=== PATIENT | male | born 1965 | race African-American/Black ===

== ENCOUNTER 2017-08-19 17:58 | Emergency (ER) | payer OTHER ==
[~2017-08-19 17:58] MED LIST: DIAZ5 PO; IBUP-238 PO
[2017-08-19 18:02] VITALS: BP 174/86; PULSE 91; RESP 20; TEMP 98.3; O2SAT 93
[2017-08-19] MEDS ORDERED: LOSA50TA PO (18:16)
[2017-08-19 18:25] VITALS: BP 155/92; PULSE 82; RESP 18; O2SAT 99
--- NOTE | 2017-08-19 18:29 | PD ---
HPI Chief Complaint: Cardiac Complaint Time Seen by Provider: 18:16 Travel History International Travel<30 days: No Contact w/Intl Traveler<30days: No Traveled to known affect area: No History of Present Illness HPI 51-year-old male with history of hypertension here for evaluation of palpitations and muscle spasm in left chest. Symptoms have been intermittent for the last 2 days. No modifying factors. When symptoms occur they last for a few seconds. Last episode was about 30 minutes prior to arrival. Patient denies any history or family history of cardiac disease. No history of DVT or PE. No dyspnea. No paresthesias or motor deficits. No chest pain. He feels a sensation of muscle twitching in his left chest and feels this is heart is racing. He is wearing a fit bit, and notices that his heart rate remains in the 70s or 80s while these episodes occur. 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 PFSH Past Medical History Cancer: No Diabetes: No Diminished Hearing: No Hepatitis: No Hiatal Hernia: No Hypertension: Yes Inguinal Hernia: Yes Respiratory: Yes (SLEEP APNEA, CPAP USED) Thyroid Disease: No Influenza Vaccination: Yes ?: Not Past Surgical History Abdominal Surgery: Yes (2005 INGUINAL HERNIA LT) Oral Surgery: Yes (2002 CAUTERIZED FOR ULCERS) Pacemaker: No Other Surgery: Yes (HERNIA REPAIR) Social History Alcohol Use: Yes ([facility]) Tobacco Use: No Substance Use: No Allergies-Medications (Allergen,Severity, Reaction): Coded Allergies: No Known Allergies (Verified , 08/19/17) Reported Meds & Prescriptions Reported Meds & Active Scripts Active Reported Losartan (Losartan Potassium) 50 Mg Tab 50 Mg PO DAILY Review of Systems Except as stated in HPI: all other systems reviewed are Neg Physical Exam Narrative GENERAL: Well-developed, well-nourished, comfortable, no apparent distress. SKIN: Focused skin assessment warm/dry. HEAD: Atraumatic. Normocephalic. EYES: Pupils equal and round. No scleral icterus. No injection or drainage. ENT: Mucous membranes pink and moist. NECK: Trachea midline. No JVD. CARDIOVASCULAR: Regular rate and rhythm. Distal pulses brisk and equal bilaterally. RESPIRATORY: No accessory muscle use. Clear to auscultation. Breath sounds equal bilaterally. GASTROINTESTINAL: Abdomen soft, non-tender, nondistended. MUSCULOSKELETAL: No obvious deformities. No clubbing. No cyanosis. No edema. NEUROLOGICAL: Awake and alert. No obvious cranial nerve deficits. Motor grossly within normal limits. Normal speech. PSYCHIATRIC: Appropriate mood and affect; insight and judgment normal. Data Data Last Documented VS Vital Signs Date Time Temp Pulse Resp B/P (MAP) Pulse Ox O2 Delivery O2 Flow Rate FiO2 08/19/17 19:00 73 18 98 Room Air 08/19/17 19:00 149/91 (110) 08/19/17 18:02 98.3 Orders Orders Electrocardiogram (08/19/17 ) Basic Metabolic Panel (Bmp) (08/19/17 18:23) Ckmb (Isoenzyme) Profile (08/19/17) Complete Blood Count With Diff (08/19/17 18:) Magnesium (Mg) (08/19/17 18:23) Prothrombin Time / Inr (Pt) (08/19/17:) Act Partial Throm Time (Ptt) (08/19/17 18:23) Troponin I (08/19/17 18:23) Chest, Single Ap (08/19/17 18:23) Ecg Monitoring (08/19/17 18:23) Bilateral Bp Monitoring (08/19/17 18:23) Iv Access Insert/Monitor (08/19/17 18:23) Oximetry (08/19/17 18:23) Oxygen Administration (08/19/17 18:23) Sodium Chloride 0.9% Flush (Ns Flush) (08/19/17 18:30) CKMB (08/19/17 18:10) CKMB% (08/19/17 18:10) Troponin I (08/19/17 20:59) Electrocardiogram (08/19/17 21:10) Labs Laboratory Tests Test 08/19/17 18:10 08/19/17 21:25 White Blood Count 7.1 TH/MM3 Red Blood Count 5.31 MIL/MM3 Hemoglobin 15.5 GM/DL Hematocrit 46.3 % Mean Corpuscular Volume 87.1 FL Mean Corpuscular Hemoglobin 29.1 PG Mean Corpuscular Hemoglobin Concent 33.4 % Red Cell Distribution Width 12.2 % Platelet Count 268 TH/MM3 Mean Platelet Volume 7.3 FL Neutrophils (%) (Auto) 58.7 % Lymphocytes (%) (Auto) 31.3 % Monocytes (%) (Auto) 5.6 % Eosinophils (%) (Auto) 3.4 % Basophils (%) (Auto) 1.0 % Neutrophils # (Auto) 4.2 TH/MM3 Lymphocytes # (Auto) 2.2 TH/MM3 Monocytes # (Auto) 0.4 TH/MM3 Eosinophils # (Auto) 0.2 TH/MM3 Basophils # (Auto) 0.1 TH/MM3 CBC Comment DIFF FINAL Differential Comment Prothrombin Time 10.7 SEC Prothromb Time International Ratio 1.0 RATIO Activated Partial Thromboplast Time 33.8 SEC Blood Urea Nitrogen 24 MG/DL Creatinine 1.30 MG/DL Random Glucose 90 MG/DL Calcium Level 9.3 MG/DL Magnesium Level 2.0 MG/DL Sodium Level 136 MEQ/L Potassium Level 3.9 MEQ/L Chloride Level 102 MEQ/L Carbon Dioxide Level 25.8 MEQ/L Anion Gap 8 MEQ/L Estimat Glomerular Filtration Rate 71 ML/MIN Total Creatine Kinase 171 U/L Creatine Kinase MB 1.0 NG/ML Troponin I LESS THAN 0.02 NG/ML LESS THAN 0.02 NG/ML MDM Medical Decision Making Medical Screen Exam Complete: Yes Emergency Medical Condition: Yes Differential Diagnosis Palpitations, ACS, metabolic abnormality, anxiety Narrative Course Vital signs reviewed. CBC is unremarkable. BMP is unremarkable. Cardiac enzymes are negative. Chest x-ray: CONCLUSION: 1. Cardiomegaly. 2. Minimal central pulmonary vascular congestion. 3. No focal alveolar consolidation to suggest pneumonia. Case discussed with on-call security systems technician Dr. Salamanca. Patient prefers to be discharged home with outpatient follow-up if at all possible. He reviewed the patient's EKG, and the patient has similar ST elevations on EKG from 06/12/12 which are more than likely from early repolarization. Patient does not have any chest pain. Plan is to perform a delta troponin 3 hours after the first, and if negative, the patient will be discharged home with follow-up with Dr. Salamanca or a security systems technician of the patient's choice this week. Repeat EKG shows the same ST elevations with normally inflected T waves. This is early repolarization. Delta troponin 3 hours after the first is also negative. Patient was made aware of all findings and will be discharged home with outpatient follow-up. He is requesting something to help him sleep as he has had little sleep in the last 2 weeks. He reports that he was prescribed Valium and Ativan in the past. I will give him a short course of Ativan. He was informed on when to return to the emergency department. He verbalizes understanding and agreement with plan. Diagnosis Primary Impression: Palpitations Referrals: Olu Salamanca MD 3 days [facility] Primary Care Physician 3 days Additional Instructions: Follow-up with security systems technician Dr. Jadyn black security systems technician of your choice this week. Follow-up with your primary care physician this week. Return to the emergency department for worsening symptoms or any other concerns. Scripts Lorazepam (Ativan) 1 Mg Tab 1 MG PO HS Y for ANXIETY AND/OR AGITATION, #3 TAB 0 Refills Prov: Saul Lindsey MD 08/19/17 Disposition: 01 DISCHARGE HOME Condition: Stable Saul Lindsey MD Aug 19, 2017 18:29
[2017-08-19] MEDS ORDERED: SODIUM CHLORIDE 0.9% FLUSH 10 ML FLUSH IVF PRN (18:30)
[2017-08-19 18:36] LABS: AUTOMATED NEUTROPHIL # 4.2 TH/MM3 (1.8-7.7); BASOPHIL # 0.1 TH/MM3 (0-0.2); EOSINOPHIL # 0.2 TH/MM3 (0-0.4); EOSINOPHIL % 3.4 % (0.0-4.0); HEMATOCRIT 46.3 % (39.0-51.0); HEMO FLAGS DIFF FINAL; LYMPH % 31.3 % (9.0-44.0); LYMPHOCYTE # 2.2 TH/MM3 (1.0-4.8); MEAN CELL VOLUME 87.1 FL (80.0-100.0); MEAN CORPUSCULAR HEMOGLOBIN 29.1 PG (27.0-34.0); MEAN CORPUSCULAR HGB CONC 33.4 % (32.0-36.0); MONO % 5.6 % (0.0-8.0); NEUT % 58.7 % (16.0-70.0); PLATELET COUNT 268 TH/MM3 (150-450); RED BLOOD COUNT 5.31 MIL/MM3 (4.50-5.90); RED CELL DISTRIBUTION WIDTH 12.2 % (11.6-17.2); WHITE BLOOD COUNT 7.1 TH/MM3 (4.0-11.0)
[2017-08-19 18:55] LABS: CHLORIDE 102 MEQ/L (98-107); POTASSIUM 3.9 MEQ/L (3.5-5.1); SODIUM (NA) 136 MEQ/L (136-145)
[2017-08-19 18:58] LABS: ANION GAP 8 MEQ/L (5-15); BICARBONATE 25.8 MEQ/L (21.0-32.0)
[2017-08-19 18:59] LABS: BLOOD UREA NITROGEN 24 MG/DL (7-18)
[2017-08-19 19:00] VITALS: BP 149/91; PULSE 73; RESP 18; O2SAT 98
[2017-08-19 19:01] LABS: APTT (PATIENT) 33.8 SEC (24.3-30.1); PROTHROMBIN TIME - PATIENT 10.7 SEC (9.8-11.6)
[2017-08-19 19:02] LABS: GLOMERULAR FILTRATION RATE 71 ML/MIN (>89)
[2017-08-19 19:05] LABS: CREATINE KINASE 171 U/L (39-308)
--- NOTE | 2017-08-19 20:01 | RADRPT ---
EXAM DATE/TIME: 08/19/2017 19:29 [facility] COMPARISON: No previous studies available for comparison. INDICATIONS : Chest pain. MEDICAL HISTORY : None. SURGICAL HISTORY : None. ENCOUNTER: Initial ACUITY: 1 day PAIN SCORE: 2/10 LOCATION: Bilateral chest FINDINGS: The heart is mildly prominent. Minimal central pulmonary vascular congestion is likely. No focal al veolar consolidation is noted. CONCLUSION: 1. Cardiomegaly. 2. Minimal central pulmonary vascular congestion. 3. No focal alveolar consolidation to suggest pneumonia. Oni Cotton MD on August 19, 2017 at 19:44 Board Certified Radiologist. This report was verified electronically.
[2017-08-19 20:45] VITALS: BP 178/109; PULSE 70; RESP 18; O2SAT 99
[2017-08-19 22:00] VITALS: BP 177/100; PULSE 75; RESP 18; O2SAT 99
[2017-08-19] MEDS ORDERED: LORA-474 PO ×2 (22:19→22:20)
[2017-08-19 22:26] VITALS: BP 157/94
--- NOTE | 2017-08-20 20:36 | EKG ---
Date Performed: 08/19/2017 Time Performed: 18:12:08 PTAGE: 51 years EKG: Sinus rhythm ST ELEVATION, PROBABLY EARLY REPOLARIZATION NONSPECIFIC ST & T-WAVE ABNORMALITY PROBABLE EARLY REPOL ARIZATION CONSIDER ANTERIOR SEPTAL INJURY PATTERN BORDERLINE ECG PREVIOUS TRACING : 05/05/2014 21.52 DOCTOR: Haresh Carpenter Interpretating Date/Time 08/20/2017 20:35:39
--- NOTE | 2017-08-20 20:43 | EKG ---
Date Performed: 08/19/2017 Time Performed: 21:10:00 PTAGE: 51 years EKG: Sinus rhythm ST ELEVATION, PROBABLY EARLY REPOLARIZATION NONSPECIFIC ST & T-WAVE ABNORMALITY CONSIDER EARLY REPOL ARIZATION CONSIDER ANTERIOR/LATERAL INJURY PATTERN CONSIDER PERICARDITIS VS REPOLARIZATION BORDERLINE ECG PREVIOUS TRACING 08/19/17 @21.10 DOCTOR: Haresh Carpenter Interpretating Date/Time 08/20/2017 20:52:16
== END 2017-08-19 22:45 | disposition home or self-care (01) ==
LOC: PHED 17:58
DX: R00.2 Palpitations (principal); I10 Essential (primary) hypertension; G47.30 Sleep apnea, unspecified; Z79.899 Other long term (current) drug therapy; R94.31 Abnormal electrocardiogram [ECG] [EKG]
CPT/HCPCS: 71010; 80048; 82550; 82552; 83735; 84484; 85025; 85610; 85730; 93005; 99285